=== PATIENT | female | born 1960 | race Caucasian/White ===

== ENCOUNTER 2023-06-03 06:25 | Day surgery (SDC) | payer OTHER ==
[~2023-06-03] VITALS: Ht 157.5 cm; Wt 59.1 kg
[~2023-06-03 06:25] MED LIST: SODIUM CHLORIDE 0.9% 1,000 ML ONE
[2023-06-03] MEDS ORDERED: LIDOCAINE 4% 50 ML SOLUTION TP ONE (06:26)
[2023-06-03] MEDS ORDERED: ALBUTEROL SULFATE 2.5 MG/0.5 ML NEB SOLUTION NEB ONE (06:26)
[2023-06-03] MEDS ORDERED: LIDOCAINE 2% 11 ML JELLY TP ONE (06:26)
[2023-06-03] MEDS ORDERED: BENZOCAINE 20% 50 MCG/SPRAY 57 GM TP ONE (06:26)
[2023-06-03] MEDS ORDERED: ALBU18HF12 IH (07:00)
[2023-06-03] MEDS ORDERED: LORA10TA7 PO (07:00)
[2023-06-03] MEDS ORDERED: SIMV-43 PO (07:00)
[2023-06-03] MEDS ORDERED: OMEP20CA12 PO (07:00)
[2023-06-03] MEDS ORDERED: CARV3.1231 PO (07:00)
[2023-06-03] MEDS ORDERED: RINGERS SOLUTION,LACTATED 1,000 ML IV ONE (07:00)
[2023-06-03] MEDS ORDERED: CHOL25TA4 PO (07:00)
[2023-06-03] MEDS ORDERED: PROP10DR15 OU (07:00)
[2023-06-03] MEDS: SODIUM CHLORIDE 0.9% 1,000 ML IV ONE (08:04)
[2023-06-03] MEDS ORDERED: MIDAZOLAM HCL 2 MG/2 ML VIAL ONE (08:14)
[2023-06-03] MEDS ORDERED: FentaNYL CITRATE PF 100 MCG/2 ML VIAL ONE (08:14)
[2023-06-03 09:30] VITALS: PULSE 54; RESP 18; O2SAT 100
[2023-06-03] MEDS ORDERED: MethylPREDNISolone SOD SUCC 125 MG/2 ML VIAL ONE (09:54)
[2023-06-03] MEDS: MethylPREDNISolone SOD SUCC 125 MG/2 ML VIAL IVP ONE (10:13)
== END 2023-06-03 11:15 | disposition home or self-care (01) ==
LOC: SURGERY 06:25
PROVIDERS: ATTEND Internal Medicine Critical Care Medicine
DX: R05.3 Chronic cough (principal); J38.4 Edema of larynx; B37.0 Candidal stomatitis; R06.2 Wheezing; R91.8 Other nonspecific abnormal finding of lung field; E78.00 Pure hypercholesterolemia, unspecified; F17.210 Nicotine dependence, cigarettes, uncomplicated; Z98.890 Other specified postprocedural states; Z79.899 Other long term (current) drug therapy
CPT/HCPCS: 87206; 87101; 87220; 87070; 88108; 31623; 31624; 94640; 71045; 87015; J3010; J2250; J2919; Q9967; J7030; J7613; Z7610

== ENCOUNTER 2024-11-16 06:43 | Day surgery (SDC) | payer OTHER ==
[~2024-11-16] VITALS: Ht 165.1 cm; Wt 53.6 kg
[~2024-11-16 06:43] MED LIST changes: +ALBU18HF12 IH; +CARV3.1231 PO; +CHOL25TA4 PO; +LORA10TA7 PO; +OMEP20CA12 PO; +PROP10DR15 OU; +SIMV-43 PO
[2024-11-16] MEDS ORDERED: ALBUTEROL SULFATE 2.5 MG/0.5 ML NEB SOLUTION NEB ONE (06:44)
[2024-11-16] MEDS ORDERED: LIDOCAINE 2% 11 ML JELLY TP ONE (06:44)
[2024-11-16] MEDS ORDERED: LIDOCAINE 4% 50 ML SOLUTION TP ONE (06:44)
[2024-11-16] MEDS ORDERED: BENZOCAINE 20% 50 MCG/SPRAY 57 GM TP ONE (06:44)
[2024-11-16] MEDS: SODIUM CHLORIDE 0.9% 1,000 ML IV ONE (07:54)
[2024-11-16] MEDS ORDERED: FLUT1BLS3 IH (08:18)
[2024-11-16] MEDS ORDERED: BENZ-227 PO (08:18)
[2024-11-16] MEDS ORDERED: MONT-35 PO (08:18)
[2024-11-16] MEDS ORDERED: FAMO20 PO (08:18)
[2024-11-16] MEDS ORDERED: MIDAZOLAM HCL 2 MG/2 ML VIAL ONE (08:23)
[2024-11-16] MEDS ORDERED: FentaNYL CITRATE PF 100 MCG/2 ML VIAL ONE (08:23)
[2024-11-16 09:26] VITALS: PULSE 60; RESP 19; O2SAT 100
== END 2024-11-16 12:45 | disposition home or self-care (01) ==
LOC: SDS 06:43
PROVIDERS: ATTEND Internal Medicine Critical Care Medicine
DX: R05.3 Chronic cough (principal); R06.2 Wheezing; R49.0 Dysphonia; R04.2 Hemoptysis; R06.1 Stridor; R91.8 Other nonspecific abnormal finding of lung field; E78.00 Pure hypercholesterolemia, unspecified; F17.290 Nicotine dependence, other tobacco product, uncomplicated
CPT/HCPCS: 31623; 87206; 87101; 87220; 87070; 88108; 31624; 71045; 87015; J3010; J2250; J2919; J7030; J7613; Z7610